=== PATIENT | female | born 1950 | race Caucasian/White ===

== ENCOUNTER 2017-01-28 14:52 | Emergency (ER) | payer MEDICARE, OTHER ==
[~2017-01-28] VITALS: Ht 157.5 cm; Wt 58.7 kg
[~2017-01-28 14:52] MED LIST: ASPI-664 PO; ATOR20TA38 PO; GLU5XL PO; IBUP800T25 PO; LORA-441 PO; LOSA25TA5 PO; MECL25TA2 PO; METF500T4 PO; ONDA4TAB8 PO; SITA100T8 PO
[2017-01-28 14:59] VITALS: Ht 157.5 cm; Wt 58.7 kg
--- NOTE | 2017-01-28 17:58 | ERD ---
ER Documentation Chief Complaint Date/Time DATE: 01/28/17 TIME: 17:56 Chief Complaint right knee pain x 1 week HPI Patient is a 66-year-old female with a past medical history of a meniscus injury and osteoarthritis in her right knee who presents to the ED with right knee pain 1 week. She states that she has had this pain for the last 2 years. Denies any new onset trauma or triggering factor. She denies pain above or below her knee joint. She states she is able to walk but with difficulty. Denies fever or chills. Denies pain in her calves or ankles. Denies shortness of breath or difficulty breathing or chest pain. Denies headache or dizziness. She states that she takes ibuprofen for her pain with minimal relief. She states that she would like an x-ray as well as something to cover her knee. ROS All systems reviewed and are negative except as per history of present illness. Medications Home Meds Active Scripts Naproxen* (Naprosyn*) 500 Mg Tablet, 500 MG PO BID Y for PAIN AND/OR INFLAMMATION, #30 TAB Prov:AWA ZELAYA PA-C 01/28/17 Meclizine Hcl* (Antivert*) 25 Mg Tablet, 25 MG PO Q6H Y for dizziness, #12 TAB Prov:PARKER AVALOS MD 01/19/16 Ondansetron Hcl* (Zofran*) 4 Mg Tablet, 4 MG PO Q6H for NAUSEA AND/OR VOMITING, #14 TAB Prov:PARKER AVALOS MD 01/19/16 Lorazepam* (Ativan*) 0.5 Mg Tablet, 0.5 MG PO Q12 for dizziness, #6 TAB Prov:PARKER AVALOS MD 01/19/16 Reported Medications Ibuprofen* (Ibuprofen*) 800 Mg Tab, 800 MG PO DAILY Y for PAIN, TAB 01/19/16 Sitagliptin* (Januvia*) 100 Mg Tablet, 100 MG PO QPM, #30 TAB 01/19/16 Metformin* (Glucophage*) 500 Mg Tab, 500 MG PO DAILY, #30 TAB 01/19/16 Glipizide XL* (Glipizide XL*) 5 Mg Tabsr, 5 MG PO QPM, TAB 01/19/16 Aspirin* (Aspirin* EC) 81 Mg Tablet.dr, 81 MG PO DAILY, TAB 01/19/16 Atorvastatin Calcium* (Atorvastatin Calcium*) 20 Mg Tablet, 20 MG PO QHS, #30 TAB 01/19/16 Losartan Potassium* (Losartan Potassium*) 25 Mg Tablet, 25 MG PO DAILY, TAB 01/19/16 Allergies Allergies: Coded Allergies: Penicillins (Verified Allergy, Severe, RASH SOB, 01/28/17) ciprofloxacin (Verified Allergy, Unknown, 01/28/17) procaine (Verified Allergy, Unknown, 01/28/17) Uncoded Allergies: SULFA (Allergy, Unknown, 01/28/17) PMhx/Soc History of Surgery: Yes (See EMR ) Anesthesia Reaction: No Hx Neurological Disorder: No Hx Respiratory Disorders: No Hx Cardiac Disorders: Yes (HTN) Hx Psychiatric Problems: No Hx Miscellaneous Medical Probl: Yes (see EMR , meniscus injury, osteoarthritis) Hx Alcohol Use: No Hx Substance Use: No Hx Tobacco Use: Yes Physical Exam Vitals Vital Signs Date Time Temp Pulse Resp B/P Pulse Ox O2 Delivery O2 Flow Rate FiO2 01/28/17 19:50 98.6 79 18 158/77 99 Room Air 01/28/17 14:59 98.1 68 18 164/68 99 Physical Exam GENERAL: Well-developed, well-nourished female. Appears in no acute distress. HEAD: Normocephalic, atraumatic. EYES: Pupils are equally reactive bilaterally. EOMs grossly intact. No conjunctival erythema. ENT: Moist mucous membranes. No uvula deviation. No kissing tonsils. No exudates. NECK: Supple. No lymphadenopathy or thyromegaly. No meningismus. negative kernig. negative brudinski. LUNG: Clear to auscultation bilaterally. No rhonchi, wheezing, rales or coarse breath sounds. HEART: Regular rate and rhythm. No murmurs, rubs or gallops. Extremities: Equal pulses bilaterally. No peripheral clubbing, cyanosis or edema. No unilateral leg swelling. Tenderness to the lateral and medial aspect of the right knee. No pain above or below the knee joint. Negative Homans sign. No erythema. No warmth or swelling. NEUROLOGIC: Alert and oriented. Moving all four extremities. 5/5 strength in all extremities. Normal speech. Steady gait. SKIN: Normal color. Warm and dry. No rashes or lesions. Capillary refill < 2 seconds Results 24 hrs Current Medications Medications (Trade) Dose Ordered Sig/Terrance Route PRN Reason Start Time Stop Time Status Last Admin Dose Admin Acetaminophen (Tylenol Tab) 650 mg ONCE ONCE PO 01/28/17 18:00 01/28/17 18:01 DC 01/28/17 18:03 Procedures/MDM ER COURSE: I kept the patient and/or family informed of laboratory and diagnostic imaging results throughout the emergency room course. IMAGING STUDIES [place] [id number] Radiology Main Line: [phone] DIAGNOSTIC IMAGING REPORT Patient: SAVI ESPINOSA : 1950 Age: 66 Sex: F MR #: [id number] DOS: 01/28/17 1753 Ordering MD: AWA ZELAYA PA-C Location: [facility] Room/Bed: PROCEDURE: Right knee x-ray CLINICAL INDICATION: knee pain x 2 years TECHNIQUE: AP, lateral, and oblique views of the knee were obtained. COMPARISON: None FINDINGS: No acute fracture or dislocation is seen. There is normal mineralization. There is mild narrowing of the medial compartment. There is no joint effusion. There is no significant soft tissue swelling. IMPRESSION: Mild narrowing of the medial compartment. RPTAT: EE Physician Erickson Date Time Electronically viewed and signed by Physician Erickson on 01/28/2017 19:08 RA/ CC: AWA ZELAYA PA-C Tylenol. Tolerated well with no adverse reaction. Knee immobilizer. Patient was neurovascularly intact post immobilizer placement. MEDICAL DECISION MAKING: This is a 66-year-old female who presents with chronic right knee pain. Vital signs were reviewed. Patient is afebrile. Patient is not hypoxic. Patient is not toxic or ill-appearing. Patient has knee pain of unknown etiology likely due to her previous meniscus injury and osteoarthritis. Low suspicion for dislocation, fracture, septic joint, compartment syndrome, osteomyelitis, avascular necrosis, DVT, Achilles tendon rupture, cellulitis. At this time, unable to rule out any tendon and ligament injuries. I explained imaging studies to patient and advised her to follow up with an multimedia authoring specialist for further evaluation of her osteoarthritis. DISCHARGE: At this time, patient is stable for discharge and outpatient management with no new complaints during the ER course. Patient was sent home with Tylenol for pain and a copy of her imaging results and a knee immobilizer and to follow-up with her multimedia authoring specialist for further evaluation such as MRI.. Patient will be discharged home with instructions to recheck for new or worsening symptoms such as fever, nausea, weakness, LOC and to follow up with primary care in the next 1-2 days. Patient was advised to return to the ER for any new or worsening symptoms. Plan was discussed and patient and/or family understands and agrees. Home instructions were given. Departure Diagnosis: Primary Impression: Knee pain Laterality: right Chronicity: chronic Qualified Code: M25.561 - Chronic pain of right knee Condition: Stable AWA ZELAYA PA-C Jan 28, 2017 17:58
[2017-01-28] MEDS ORDERED: ACETAMINOPHEN 325 MG TAB PO ONE (18:00)
--- NOTE | 2017-01-28 19:08 | RADRPT ---
PROCEDURE: Right knee x-ray CLINICAL INDICATION: knee pain x 2 years TECHNIQUE: AP, lateral, and oblique views of the knee were obtained. COMPARISON: None FINDINGS: No acute fracture or dislocation is seen. There is normal mineralization. There is mild narrowing of the medial compartment. There is no joint effusion. There is no significant soft tissue swelling. IMPRESSION: Mild narrowing of the medial compartment. RPTAT: EE Physician Erickson Date Time Electronically viewed and signed by Luis Alberot Flores Physician on 01/28/2017 19:08 /
[2017-01-28] MEDS ORDERED: NAPR-260 PO (19:32)
[2017-01-28 19:50] VITALS: BP 158/77; PULSE 79; RESP 18; TEMP 98.6
== END 2017-01-28 19:51 | disposition home or self-care (01) ==
LOC: FTE 14:52
DX: M25.561 Pain in right knee (principal); I10 Essential (primary) hypertension; E11.9 Type 2 diabetes mellitus without complications; Z79.82 Long term (current) use of aspirin; Z79.84 Long term (current) use of oral hypoglycemic drugs; Z87.891 Personal history of nicotine dependence
CPT/HCPCS: 73562

== ENCOUNTER 2017-05-30 14:40 | Emergency (ER) | END 2017-05-30 16:23 | disposition home or self-care (01) | DX: N30.01 Acute cystitis with hematuria (principal); E11.9 Type 2 diabetes mellitus without complications; I10 Essential (primary) hypertension; Z79.82 Long term (current) use of aspirin; Z79.84 Long term (current) use of oral hypoglycemic drugs ==